=== PATIENT | female | born 1960 | race African-American/Black ===

== ENCOUNTER 2018-01-04 08:39 | Emergency (ER) | payer OTHER ==
[~2018-01-04] VITALS: Ht 170.2 cm; Wt 72.6 kg
--- NOTE | ~2018-01-04 | EKG ---
[address] [address] [place] [address] ELECTROCARDIOGRAM REPORT Name: SARITHA POWERS [id number] Admission: 01/04/18 Attend Phys: Discharge: 01/04/18 Date of : 60 Report #: [id number] THIS REPORT FOR: //name// [facility] ED Test Date: 2018-01-04 Test Time: 09:34:14 Pat Name: SARITHA POWERS Department: Room: Gender: F Video Conference Specialist: alicia : 1960 Requested By: Joby Richardson Order Number: [id number] MD: Rishi Louise Measurements Intervals [place] Rate: 95 P: 73 MI: 139 QRS: 58 QRSD: 89 T: 58 QT: 375 QTc: 472 Interpretive Statements Sinus rhythm Nonspecific ST segment abnormality Compared to ECG 01/11/2017 22:55:21 Ventricular premature complex(es) no longer present Electronically Signed On 01-04-2018 17:14:12 POWERED BRIDGE SPECIALIST by Rishi Louise [email or web address] <ELECTRONICALLY SIGNED> By: Rishi Louise MD, [facility] 01/04/18 1714 0934 3 Rishi Louise MD, FACC /EPI
[~2018-01-04 08:39] MED LIST: ACETAMINOPHEN-1 EAC1 PO; AMOXICILLIN500 M1 PO; FLONASE16 GM NASAL; MULTIVITAMINS PO; NAPROSYN500 MG PO; NOHOMEMEDICATIONS
[2018-01-04 09:42] LABS: ANION GAP 9 mmol/L (7-16); BUN 24 mg/dL (7-18); CALCIUM 10.2 mg/dL (8.5-10.1); CHLORIDE 103 mmol/L (98-107); CO2 29 mmol/L (21-32); CREATININE 1.1 mg/dL (0.6-1.0); GLUCOSE 104 mg/dL (74-106); POTASSIUM 3.7 mmol/L (3.5-5.1); SODIUM 141 mmol/L (136-145)
[2018-01-04 09:51] LABS: TROPONIN-I < 0.04 ng/mL (<0.06)
[2018-01-04] MEDS ORDERED: TIZANIDINE HCL4 MG PO (10:34)
[2018-01-04] MEDS ORDERED: MOBIC15 MG PO (10:34)
== END 2018-01-04 10:52 | disposition home or self-care (01) ==
LOC: ER 08:39
PROVIDERS: Nurse Practitioner
DX: M25.512 Pain in left shoulder (principal)

== ENCOUNTER 2020-11-12 18:59 | Emergency (ER) | payer OTHER ==
[~2020-11-12] VITALS: Ht 167.6 cm; Wt 95.3 kg
[~2020-11-12 18:59] MED LIST changes: +MOBIC15 MG PO; +TIZANIDINE HCL4 MG PO
[2020-11-12 20:01] LABS: ABSOLUTE NEUTROPHILS 5.3 thou/uL (1.4-8.2); BASOPHILS 0.7 % (0.0-2.0); EOSINOPHILS 1.2 % (0.0-3.0); HEMATOCRIT 36.3 % (37.0-47.0); LYMPHOCYTES 27.7 % (24.0-44.0); MCH 32.3 pg (26.0-34.0); MCV 97.8 fL (80.0-100.0); MONOCYTES 7.2 % (1.0-8.0); PLATELET COUNT 344 thou/uL (150-400); POLYS 63.2 % (36.0-66.0); RBC 3.71 mil/uL (4.20-5.00); RDW 13.8 % (10.5-14.5); WBC 8.5 thou/uL (4.0-11.0)
[2020-11-12 20:12] LABS: ANION GAP 7 mmol/L (7-16); BUN 14 mg/dL (7-18); CALCIUM 9.2 mg/dL (8.5-10.1); CHLORIDE 105 mmol/L (98-107); CO2 28 mmol/L (21-32); CREATININE 1.1 mg/dL (0.6-1.0); GLUCOSE 96 mg/dL (74-106); POTASSIUM 3.8 mmol/L (3.5-5.1); SODIUM 140 mmol/L (136-145)
[2020-11-12 20:21] LABS: ALBUMIN 3.6 g/dL (3.4-5.0); SGOT 40 U/L (15-37); SGPT 54 U/L (14-59); TOTAL BILIRUBIN 0.2 mg/dL (0.2-1.0); TOTAL PROTEIN 7.7 g/dL (6.4-8.2); TROPONIN-I <0.06 ng/mL (<0.06)
[2020-11-12 20:29] VITALS: BP 123/69
--- NOTE | 2020-11-13 07:23 | EKG ---
[address] [place] [address] ELECTROCARDIOGRAM REPORT Name: SARITHA POWERS [facility] [id number] Admission: 11/12/20 Attend Phys: Discharge: 11/12/20 Date of : 60 Report #: [id number] [facility] ED Test Date: 2020-11-12 Test Time: 19:01:39 Pat Name: SARITHA POWERS Department: Room: Gender: F Parts Cleaner: STEPHEN : 1960 Requested By: Nayeli Hatch Order Number: [id number] MD: Jake Reynolds Measurements Intervals [place] Rate: 72 P: 56 ME: 142 QRS: 51 QRSD: 86 T: 32 QT: 435 QTc: 477 Interpretive Statements Sinus rhythm Borderline T wave abnormalities Borderline prolonged QT interval Compared to ECG 01/04/2018 09:34:14 T-wave abnormality now present ST (T wave) deviation no longer present Electronically Signed On 11-13-2020 7:23:18 BRIDGE MAINTAINER by Jake Reynolds [email or web address] <ELECTRONICALLY SIGNED> By: Jake Reynolds MD, [facility] 11/13/20 0723 D: 12/1900 00 Jake Reynolds MD, FACC /EPI
== END 2020-11-12 21:08 | disposition home or self-care (01) ==
LOC: ER 18:59
PROVIDERS: Physician Assistant
DX: R07.89 Other chest pain (principal)